=== PATIENT | male | born 1975 | race Caucasian/White ===

== ENCOUNTER 2022-07-24 08:28 | Day surgery (SDC) | payer OTHER ==
[2022-07-24] MEDS ORDERED: Sodium Chloride 0.9% 1,000 ML IV SCH (09:15)
[2022-07-24] MEDS ORDERED: Midazolam 1 MG/ML 2 ML SDV ONE (09:49)
[2022-07-24] MEDS ORDERED: Propofol 200 MG/20 ML SDV ONE (09:49)
[2022-07-24] MEDS ORDERED: fentaNYL 100 MCG/2 ML SDV ONE (09:49)
== END 2022-07-24 12:06 | disposition home or self-care (01) ==
LOC: JP.SDS 08:28
PROVIDERS: ATTEND Surgery
DX: Z12.11 Encounter for screening for malignant neoplasm of colon (principal); K21.9 Gastro-esophageal reflux disease without esophagitis; Z79.899 Other long term (current) drug therapy; Z88.0 Allergy status to penicillin
CPT/HCPCS: J2250; J2704; J3010; J7030